=== PATIENT | male | born 1950 | race Caucasian/White ===

== ENCOUNTER 2019-02-25 06:14 | Day surgery (SDC) | payer OTHER, MEDICARE ==
[2019-02-25] MEDS ORDERED: MIDAZOLAM HCL 2MG/2ML VIAL IV ONE (06:15)
[2019-02-25] MEDS ORDERED: PROPOFOL 10 MG/ML VIAL IV ONE (06:15)
[2019-02-25] MEDS ORDERED: LIDOCAINE 2% MDV (20MG/ML) 20ML VIAL IV ONE (06:15)
[2019-02-25] MEDS ORDERED: *PACU ONLY* KETAMINE HCL 10 MG/ML (20ML) VIAL IV ONE (06:15)
[2019-02-25] MEDS ORDERED: FENTANYL PF 100MCG/2ML VIAL IV ONE (06:15)
[2019-02-25] MEDS ORDERED: RINGERS SOLUTION,LACTATED 1,000 ML IV ONE (06:45)
[2019-02-25] MEDS ORDERED: LIDOCAINE 1% W/EPI 1:100,000 MDV 20 ML VIAL SQ ONE (07:36)
[2019-02-25] MEDS ORDERED: BUPIVACAINE 0.5% W/EPI MPF 30 ML VIAL SQ ONE (07:36)
[2019-02-25] MEDS ORDERED: DEXAMETHASONE PRESERVATIVE FREE 10MG/ML VIAL IM ONE (07:36)
--- NOTE | 2019-02-25 10:45 | Operative Note ---
DATE OF SURGERY: 02/25/2019 PREOPERATIVE DIAGNOSIS: CERVICAL SPONDYLOSIS WITHOUT MYELOPATHY, ICD-10 CODE M47.81. OPERATION: RADIOFREQUENCY RHIZOTOMY LEFT CERVICAL FACETS C3-C4, C4-C5, C5-C6, AND C6-C7. SURGEON: Goyo Monroy D.O. ANESTHESIA: Local sedation. ANESTHESIA PROVIDER: CHIVO Andino CRNA INDICATIONS: This patient presents with primary neck pain. Examination shows tenderness of the cervical spine. Range of motion does cause pain to the neck with extension. Diagnostic imaging shows diffuse multiple level spondylosis. Facet series 75% relieve. Due to the failure of therapy and the success of the facet series, the patient presents for rhizotomy for more mcc relief. SURGERY: Intravenous line, vital sign monitoring, IV sedation. Prepped and draped, sterile technique. Under imaging the facets of the cervical spine on the left C3-C4, C4-C5, C5-C6, and C6-C7 are marked and infiltrated with local,. A 22-gauge rhizotomy cannula was positioned, stimulation trial was conducted. Rhizotomy burn performed. Local with anti-inflammatory in the site. Topical antibiotic, sterile dressing applied. Will monitor and evaluate. JOB NUMBER: [id number] MTDD
== END 2019-02-25 08:33 | disposition home or self-care (01) ==
LOC: SUR 06:14
PROVIDERS: ATTEND Pain Medicine Interventional Pain Medicine
DX: M47.812 Spondylosis without myelopathy or radiculopathy, cervical region (principal); I10 Essential (primary) hypertension; E78.00 Pure hypercholesterolemia, unspecified; F90.9 Attention-deficit hyperactivity disorder, unspecified type; I42.9 Cardiomyopathy, unspecified; F31.9 Bipolar disorder, unspecified; E03.9 Hypothyroidism, unspecified; G89.29 Other chronic pain
CPT/HCPCS: J7120